=== PATIENT | male | born 1985 | race Caucasian/White ===

== ENCOUNTER 2018-04-14 17:18 | Emergency (ER) | payer SELFPAY, MEDICAID ==
[2018-04-14 18:03] LABS: AMORPHOUS SEDIMENT LARGE (NEGATIVE); APPEARANCE, URINE TURBID (CLEAR); BACTERIA, URINE AUTO NEGATIVE (NEGATIVE); BILIRUBIN, URINE AUTO NEGATIVE (NEGATIVE); BLOOD, URINE BLOOD NEGATIVE (NEGATIVE); COLOR, URINE YELLOW (YELLOW); GLUCOSE, URINE (UA) AUTO NEGATIVE (NEGATIVE); KETONE, URINE AUTO NEGATIVE (NEGATIVE); LEUKOCYTE ESTERASE, URINE AUTO NEGATIVE (NEGATIVE); MUCUS, URINE SMALL (NEGATIVE); NITRITE, URINE AUTO NEGATIVE (NEGATIVE); PROTEIN, URINE AUTO NEGATIVE (NEGATIVE); RBC, URINE AUTO 3 /HPF (0-3); SPECIFIC GRAVITY URINE AUTO 1.023 (1.002-1.035); SQUAMOUS EPITHELIAL CELL UR AU 0 /HPF (0-6); WBC, URINE AUTO 1 /HPF (0-3)
[2018-04-14] MEDS: PERCOCET 5MG/325MG TAB PO (19:17)
[2018-04-14] MEDS: NORCO 5/325MG TABLET (BULK FOR ED) PO (21:30)
== END 2018-04-14 21:37 | disposition home or self-care (01) ==
LOC: M ED 17:18
DX: K40.20 Bilateral inguinal hernia, without obstruction or gangrene, not specified as recurrent (principal); N50.812 Left testicular pain; F17.210 Nicotine dependence, cigarettes, uncomplicated; Z88.0 Allergy status to penicillin
CPT/HCPCS: 76870

== ENCOUNTER 2018-06-23 05:49 | Day surgery (SDC) | payer SELFPAY ==
[~2018-06-23] VITALS: Ht 177.8 cm; Wt 77.1 kg
[~2018-06-23 05:49] MED LIST: AMBI5TAB; CELE20TA; CELE20TA OR; COLA100C5 PO; NORCOTAB PO; TRAZ100T OR
[2018-06-23] MEDS ORDERED: LevoFLOXacin IV 500 MG in APPROPRIATE DILUENT 1 EA IV ONE (06:00)
[2018-06-23] MEDS ORDERED: LR 1,000 ML IV ONE (06:00)
[2018-06-23] MEDS ORDERED: LIDOCAINE 1% SDV INJ 30 ML VIAL As Ordered ONE (07:11)
[2018-06-23] MEDS ORDERED: BUPIVACAINE HCL 0.25% 30 ML VIAL As Ordered ONE (07:11)
[2018-06-23] MEDS ORDERED: PROPOFOL 200 MG/20 ML VIAL As Ordered ONE (07:16)
[2018-06-23] MEDS ORDERED: MIDAZOLAM INJ 2 MG/2 ML VIAL (J2250) As Ordered ONE (07:16)
[2018-06-23] MEDS ORDERED: fentaNYL 250 MCG/5 ML INJECTION (J3010) As Ordered ONE (07:16)
[2018-06-23] MEDS ORDERED: dexameTHASONE 4 MG/ML 1ML VIAL (J1100) As Ordered ONE (07:16)
[2018-06-23] MEDS ORDERED: LIDOCAINE 2% INJ 100 MG/5 ML SDV (FOR ANES.) As Ordered ONE (07:16)
[2018-06-23] MEDS ORDERED: ROCURONIUM BROMIDE 50 MG/5 ML VIAL As Ordered ONE ×2 (07:16→08:01)
[2018-06-23] MEDS ORDERED: ONDANSETRON 4MG/2ML VIAL (J2405) As Ordered ONE (07:54)
[2018-06-23] MEDS ORDERED: METOCLOPRAMIDE INJ 10MG/2ML VIAL (J2765) As Ordered ONE (07:54)
[2018-06-23] MEDS ORDERED: KETOROLAC 60 MG/2 ML VIAL (J1885) As Ordered ONE (07:54)
[2018-06-23] MEDS ORDERED: GLYCOPYRROLATE INJ 0.2 MG/ML 2 ML VIAL As Ordered ONE (08:23)
[2018-06-23] MEDS ORDERED: NEOSTIGMINE 10 MG/10 ML VIAL (J2710) As Ordered ONE (08:23)
[2018-06-23] MEDS ORDERED: HYDROmorphone HCL 2 MG/ML 1ML VIAL (J1170) As Ordered ONE (08:39)
[2018-06-23] MEDS: PERCOCET 5MG/325MG TAB PO PRN ×2 (09:53→10:23)
[2018-06-23] MEDS ORDERED: PERCOCET 5MG/325MG TAB As Ordered ONE (09:53)
[2018-06-23] MEDS ORDERED: fentaNYL 100 MCG/2 ML INJECTION (J3010) IV PRN (10:15)
[2018-06-23] MEDS ORDERED: MORPHINE 10 MG/ML 1ML VIAL (J2270) IV PRN (10:15)
[2018-06-23] MEDS ORDERED: KETOROLAC 30 MG/ML VIAL (J1885) IV PRN (10:15)
[2018-06-23] MEDS ORDERED: ONDANSETRON 4MG/2ML VIAL (J2405) IV PRN ×2 (10:15)
[2018-06-23] MEDS ORDERED: LR 1,000 ML IV SCH (10:15)
[2018-06-23] MEDS ORDERED: NORCO, ANEXSIA 5/325MG TABLET (HYDROcodone/ACETAMINOPHEN) PO PRN ×2 (10:15)
[2018-06-23 12:45] VITALS: BP 151/76
--- NOTE | 2018-07-07 12:41 | ROOPDOC ---
[facility] Report Of Operation Report of Operation DATE OF PROCEDURE: 06/23/18 PREPROCEDURE DIAGNOSES: Bilateral inguinal hernia, left more symptomatic POSTPROCEDURE DIAGNOSES: Same. PROCEDURE: Robotic-assisted laparoscopic bilateral inguinal hernia repair with placement of mesh (LYSSA). SURGEON: Henry Nugent MD PYROMETER MECHANIC: Kandy Rios NP ANESTHESIA: Gen. anesthesia. ESTIMATED BLOOD LOSS: Approximately 20 mL. COMPLICATIONS: None. REMARKS: Bilateral indirect inguinal hernia, left side bigger than the right. Both were repaired in the transabdominal preperitoneal approach with placement of the Progrip polyester mesh. PROCEDURE NOTE: 32-year-old male with symptomatic left inguinal hernia and a small asymptomatic right inguinal hernia DESCRIPTION OF PROCEDURE: Patient received 2 g of Ancef IV preoperatively for wound prophylaxis. Patient was brought to the operating room, placed supine on the operating table. Compression boots placed in both lower extremities for DVT prophylaxis. After adequate general anesthesia started, he was placed on a lithotomy position. A vanessa catheter placed without difficulty. His abdomen and groin/pelvic area then prepped and draped in the usual sterile fashion. After a surgical timeout we began our surgery. Entry to the abdomen done through a small incision above the umbilical skin cleft. A Veress needle is inserted on a controlled fashion. CO2 insufflation started to pressure 15 mmHg. Using the same incision a 5 mm Visiport was then placed under direct vision of laparoscope. The insertion site was inspected for injury and none was found. Patient was then positioned on a Trendelenburg position with the symptomatic (left) side tilted upwards for adequate view of the hernia defect. 2 working ports placed to the right and left of the umbilicus along the same line. The [place]re[place] robot tower was then positioned in between the patient's legs and the trochars docked onto the robot. I then unscrubbed and took control of the camera and the laparoscopic instruments at the surgeon's console. A Cadiere forceps with bipolar cautery on arm 2 and A delphine-cut laparoscopic scissor with unipolar cautery in arm 1 was used. Operative Findings: He has bilateral indirect inguinal hernia defects. The left side has a noticeable peritoneal sac going into the internal ring but the size of the defect is small to accommodate any intra-abdominal organ. With my virtual office assistant palpating at the left groin, there is a noticeable bulging of preperitoneal tissue. He has a small defect on the right side also with some noticeable bulging of preperitoneal tissue with external palpation. I started on the left side. The peritoneum was opened up about 3 cm above the superior edge of the fascial defect of the inguinal hernia starting at the medial umbilical ligament going in an arc-like fashion laterally towards the level of the anterior superior iliac spine. This was then dissected mostly bluntly away from the abdominal wall. On approaching the inguinal hernia defect the hernia sac was pulled back into the preperitoneal space and carefully dissected off the testicular vessels and vas deferens. He has a redundant in guinal hernia sac which was fully reduced back into the abdomen. Both these structures were promptly identified and from the hernia sac. A bulky cord lipoma was found and dissected free from the rest of the structures, this was reduced back into the preperitoneal space out of the inguinal canal. After freeing up the hernia sac we continued dissecting it off inferiorly to from the vas deferens and testicular vessels. The preperitoneal space was dissected medially to expose the pubic tubercle up towards the symphysis pubis. The remaining areolar fibers were bluntly dissected away from the abdominal wall to create space for the mesh. After fully dissecting the preperitoneal space, we checked for adequate hemostasis. I chose a Parietex [employer] self fixating mesh. I had my virtual office assistant trim the lateral edges of the mesh and the medial inferior fold of the mesh to appro ximate the patient's body habitus. This was folded with the center of the mesh marked for positioning. This was then delivered intra-abdominally through one of the trochars. A controlled fashion this was positioned into the preperitoneal space with the medial side towards the pubic tubercle and the previously marked center of the mesh abutting the inferior epigastric vessels. The mesh was then carefully infolded and positioned in place with adequate overlap around the internal ring to cover the hernia defect. The mesh has adequate coverage for the direct hernia spaces as well. This was carefully pressed onto the abdominal wall and made sure that it was flattened up. After careful placement of the mesh, the peritoneal opening was then closed with a running suture of 2-0V LOC suture. As the hernia sac was long and redundant I incorporated the hernia sac into the closure of the peritoneum. In a similar manner I worked on the hernia in the right side. The peritoneum was opened up and dissected free from the abdominal wall. It only has a short course of the hernia sac and this was freed from the vas deferens and testicular vessels which was promptly identified. The cord lipoma inside the inguinal canal was reduced back into the preperitoneum. The preperitoneal space was widely infiltrated dissected to accommodate the mesh. After checking for hemostasis a similar sized Pro multi media specialist mesh was placed and laid flat onto the abdominal wall to cover the hernia spaces. The peritoneal incision was then closed with a running suture of 20V LOC. I then surveyed the abdomen and pelvis for any signs of injury. Once satisfied I scrubbed back in. The instruments were removed. The abdomen was deflated. All ports were removed. The skin incisions were closed with 4-0 Monocryl in subcuti cular fashion. The incisions were covered with Dermabond. The port sites were again infiltrated with local anesthesia. An ilioinguinal nerve block was also performed. Patient was promptly awakened, extubated and brought to the recovery room stable Count of sponges and instruments were verified correct. HNERY NUGENT MD Jul 06, 2018 09:12
== END 2018-06-23 12:53 | disposition home or self-care (01) ==
LOC: M SDC 05:49
PROVIDERS: ATTEND Surgery
DX: K40.20 Bilateral inguinal hernia, without obstruction or gangrene, not specified as recurrent (principal); Z88.0 Allergy status to penicillin; Z72.0 Tobacco use
CPT/HCPCS: 49650; C1781; J1100; J1170; J1885; J1956; J2250; J2405; J2710; J2765; J3010

== ENCOUNTER 2019-08-05 02:23 | Emergency (ER) | payer SELFPAY ==
[~2019-08-05] VITALS: Ht 177.8 cm; Wt 81.3 kg
[~2019-08-05 02:23] MED LIST changes: +HYDR-3715 PO; -NORCOTAB PO
[2019-08-05] MEDS ORDERED: LIDOCAINE W/EPINEPHRINE 1% 20ML VIAL SC ONE (02:45)
[2019-08-05 04:34] LABS: AMPHETAMINES LEVEL URINE NEGATIVE (NEGATIVE); BARBITURATES URINE NEGATIVE (NEGATIVE); BENZODIAZEPINES URINE NEGATIVE (NEGATIVE); CANNABINOIDS URINE NEGATIVE (NEGATIVE); COCAINE METABOLITE URINE NEGATIVE (NEGATIVE); HEMATOCRIT 46.3 % (42.0-52.0); MEAN CORPUSCULAR HEMOGLOBIN 30.5 pg (27.0-33.0); MEAN CORPUSCULAR HGB CONC 34.6 g/dl (32.0-36.5); MEAN CORPUSCULAR VOLUME 88.4 fl (80.0-96.0); METHADONE URINE NEGATIVE (NEGATIVE); OPIATES URINE NEGATIVE (NEGATIVE); PHENCYCLIDINE URINE NEGATIVE (NEGATIVE); PLATELET COUNT, AUTOMATED 267 10^3/uL (150-450); RED BLOOD COUNT 5.24 10^6/uL (4.30-6.10); WHITE BLOOD COUNT 9.1 10^3/uL (4.0-10.0)
[2019-08-05 05:21] LABS: ACETAMINOPHEN LEVEL < 2.0 UG/ML (10.0-30.0); ALBUMIN 4.7 GM/DL (3.2-5.2); ALT/SGPT 71 U/L (12-78); BILIRUBIN,DIRECT 0.1 MG/DL (0.0-0.2); BILIRUBIN,TOTAL 0.2 MG/DL (0.2-1.0); BLOOD UREA NITROGEN 14 MG/DL (7-18); CALCIUM LEVEL 8.6 MG/DL (8.5-10.1); CARBON DIOXIDE LEVEL 25 MEQ/L (21-32); CHLORIDE LEVEL 112 MEQ/L (98-107); CREATININE FOR GFR 0.95 MG/DL (0.70-1.30); ETHYL ALCOHOL (ETHANOL) 0.232 % (0.000-0.010); GLOMERULAR FILTRATION RATE > 60.0 (>60); GLUCOSE, FASTING 111 MG/DL (70-100); POTASSIUM SERUM 3.9 MEQ/L (3.5-5.1); SALICYLATE LEVEL 2.1 MG/DL (5.0-30.0); SODIUM LEVEL 143 MEQ/L (136-145); TOTAL PROTEIN 7.9 GM/DL (6.4-8.2)
[2019-08-05] MEDS ORDERED: ACETAMINOPHEN TAB 650MG DOSE (2X325MG) PO ONE (08:00)
[2019-08-05 13:45] VITALS: BP 132/86
== END 2019-08-05 13:53 | disposition home or self-care (01) ==
LOC: M ED 02:23
DX: S41.111A Laceration without foreign body of right upper arm, initial encounter (principal); F10.120 Alcohol abuse with intoxication, uncomplicated; S44.91XA Injury of unspecified nerve at shoulder and upper arm level, right arm, initial encounter; Y28.0XXA Contact with sharp glass, undetermined intent, initial encounter; Y92.9 Unspecified place or not applicable; Y93.9 Activity, unspecified; Y99.9 Unspecified external cause status; F17.200 Nicotine dependence, unspecified, uncomplicated; Z88.0 Allergy status to penicillin
CPT/HCPCS: 12002; 80048; 80076; 80307; 84443; 85027; 99285; G0480